=== PATIENT | male | born 1970 | race Caucasian/White ===

== ENCOUNTER 2017-03-25 03:34 | Emergency (ER) | payer MEDICAID ==
[~2017-03-25] VITALS: Ht 167.6 cm; Wt 68.0 kg
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
--- NOTE | 2017-03-25 03:45 | NUR ---
PER DR. KIMBLE, PT PROVIDED WITH FOOD AND JUICE
--- NOTE | 2017-03-25 03:50 | NUR ---
RADIOLOGY AT BEDSIDE FOR CXR
[2017-03-25 04:02] LABS: BASOPHILS % (AUTO) 0.3 % (0.0-2.0); EOSINOPHILS # (AUTO) 0.1 /CMM (0.0-0.7); EOSINOPHILS % (AUTO) 1.2 % (0.0-6.0); HEMATOCRIT 35 % (39-51); HEMOGLOBIN 11.8 g/dL (13.5-17.5); LYMPHOCYTES # (AUTO) 1.5 /CMM (0.8-4.8); LYMPHOCYTES % (AUTO) 23.8 % (20.0-44.0); MEAN CORPUSCULAR HEMOGLOBIN 30 PG (26.0-33.0); MEAN CORPUSCULAR HGB CONC 33 g/dl (31.0-36.0); MEAN CORPUSCULAR VOLUME 89 fL (80-96); MONOCYTES # (AUTO) 0.7 /CMM (0.1-1.30); MONOCYTES % (AUTO) 10.8 % (2.0-12.0); NEUTROPHILS % (AUTO) 63.9 % (43.0-81.0); PLATELET COUNT (AUTO) 204 /CMM (150-450); RDW COEFFICIENT OF VARIATION 13.4 (11.5-15.0); RED BLOOD CELL COUNT(AUTO) 3.98 MIL/uL (4.5-6.0); WHITE BLOOD COUNT (AUTO) 6.3 K/uL (4.3-11.0)
[2017-03-25 04:19] LABS: ALBUMIN 3.6 g/dL (3.4-5.0); BILIRUBIN,DIRECT 0.1 mg/dL (0.0-0.2); BILIRUBIN,TOTAL 0.4 mg/dL (0.2-1.0); CALCIUM, SERUM 8.5 mg/dL (8.5-10.1); CREATININE 1.6 mg/dL (0.6-1.3); TOTAL PROTEIN, SERUM 6.8 g/dL (6.4-8.2)
--- NOTE | 2017-03-25 04:20 | NUR ---
FAMILY AT BEDSIDE
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
[2017-03-25 05:21] LABS: APPEARANCE,URINE CLEAR (CLEAR); BILIRUBIN,URINE NEGATIVE (NEGATIVE); BLOOD, URINE NEGATIVE Ery/uL (NEGATIVE); COLOR,URINE YELLOW (YELLOW); KETONES,URINE NEGATIVE (NEGATIVE); LEUKOCYTE ESTERASE ,URINE NEGATIVE (NEGATIVE); NITRITE, URINE NEGATIVE (NEGATIVE); PH,URINE 6.5 (5.0-8.0); PROTEIN,URINE 1+ mg/dl (NEGATIVE); UGLUCOSE TRACE mg/dL (NEGATIVE); UROBILINOGEN,URINE 0.2 EU/dL (0.2)
[2017-03-25 05:31] LABS: BACTERIA,URINE None seen /HPF (None Seen); RBC,URINE 0-2 /HPF (0-2); SQUAMOUS EPITHELIAL CELL,UR Rare /HPF (None Seen); WBC,URINE NONE SEEN /HPF (0-3)
--- NOTE | 2017-03-25 05:36 | NUR ---
DR. KIMBLE AT BEDSIDE SPEAKING TO PT REGARDING RESULTS.
--- NOTE | 2017-03-25 05:45 | NUR ---
IV removed. Catheter intact and site benign. Pressure and 4x4 applied to site. No bleeding noted. Patient discharged to home in stable condition. Written and verbal after care instructions given. Patient verbalizes understanding of instruction. ambulatory with a steady gait.
[2017-03-25 06:09] VITALS: BP 129/85
== END 2017-03-25 05:45 | disposition home or self-care (01) ==
LOC: ER 03:37
DX: E10.649 Type 1 diabetes mellitus with hypoglycemia without coma (principal); I10 Essential (primary) hypertension; Z79.4 Long term (current) use of insulin
CPT/HCPCS: 36415; 71010; 80048; 80076; 81001; 82962 ×2; 84484; 85025; 93005; 99285; A4606; Z7610; 81000-TC

== ENCOUNTER 2017-06-28 03:24 | Emergency (ER) | payer MEDICAID, OTHER ==
[~2017-06-28] VITALS: Ht 167.6 cm; Wt 65.8 kg
--- NOTE | 2017-06-28 03:24 | NUR ---
PT TO ER BED 5. PT BIBRA FROM HOME C/O ALTERED WITH A BS ON SCENE OF 45, AMP D50 GIVEN ASSOCIATE CHIEF NURSE. PT PLACED ON CANDY SPREADER HELPER. VSS/RESP EVEN UNLABORED/NAD NOTED/SKIN WARM AND DRY/DENIES N-V-D/AOX4. AWAITING MD MENDEZ.
--- NOTE | 2017-06-28 03:35 | NUR ---
ACCUCHECK AT BEDSIDE OF 235. MD AWARE.
--- NOTE | 2017-06-28 04:30 | NUR ---
ACCUCHECK AT BEDSIDE MD Hank AWARE.
--- NOTE | 2017-06-28 04:45 | NUR ---
PT GIVEN A SANDWICH AND WATER. VSS.
--- NOTE | 2017-06-28 04:56 | NUR ---
IV removed. Catheter intact and site benign. Pressure and 4x4 applied to site. No bleeding noted. Patient discharged to home in stable condition. Written and verbal after care instructions given. Patient verbalizes understanding of instruction. Patient ambulatory with a steady gait.
[2017-06-28 04:57] VITALS: BP 138/81
== END 2017-06-28 04:58 | disposition home or self-care (01) ==
LOC: ER 03:26
DX: E10.649 Type 1 diabetes mellitus with hypoglycemia without coma (principal); I10 Essential (primary) hypertension; Z79.4 Long term (current) use of insulin
CPT/HCPCS: 82962 ×2; 99283; A4606; Z7610

== ENCOUNTER 2017-07-29 07:53 | Emergency (ER) | payer OTHER ==
[~2017-07-29] VITALS: Ht 165.1 cm; Wt 67.6 kg
--- NOTE | 2017-07-29 07:55 | NUR ---
AAOX3, BIBRA [address] FOR HYPOGLYCEMIA BS=33MG/DL IN THE FIELD. PATIENT WAS GIVEN 1MG GLUCAGON, REPEAT BS UPON ARRIVAL IS 101MG/DL. ASSISTED PATIENT TO HOSPITAL GOWN. PLACED ON THE MONITOR. DR PUENTES AT BS FOR EVAL.
--- NOTE | 2017-07-29 07:58 | NUR ---
BLOOD SUGAR CHECKED, READING 101. INFORMED.
--- NOTE | 2017-07-29 08:06 | NUR ---
CALLED DIETARY FOR FOOD TRAY.
--- NOTE | 2017-07-29 08:08 | NUR ---
IV ACCESS STARTED. BLOOD DRAWN FOR LABS.
[2017-07-29 08:15] LABS: BASOPHILS % (AUTO) 0.3 % (0.0-2.0); EOSINOPHILS % (AUTO) 0.5 % (0.0-6.0); HEMATOCRIT 39 % (39-51); LYMPHOCYTES # (AUTO) 1.1 /CMM (0.8-4.8); LYMPHOCYTES % (AUTO) 13.7 % (20.0-44.0); MEAN CORPUSCULAR HEMOGLOBIN 30 PG (26.0-33.0); MEAN CORPUSCULAR HGB CONC 34 g/dl (31.0-36.0); MEAN CORPUSCULAR VOLUME 88 fL (80-96); MONOCYTES # (AUTO) 0.6 /CMM (0.1-1.30); MONOCYTES % (AUTO) 7.5 % (2.0-12.0); NEUTROPHILS # (AUTO) 6.4 /CMM (1.8-8.9); PLATELET COUNT (AUTO) 214 /CMM (150-450); RDW COEFFICIENT OF VARIATION 13.2 (11.5-15.0); RED BLOOD CELL COUNT(AUTO) 4.41 MIL/uL (4.5-6.0); WHITE BLOOD COUNT (AUTO) 8.2 K/uL (4.3-11.0)
[2017-07-29 08:30] LABS: CALCIUM, SERUM 9.2 mg/dL (8.5-10.1); CREATININE 1.5 mg/dL (0.6-1.3); POTASSIUM 3.9 mmol/L (3.5-5.1)
[2017-07-29 08:36] LABS: ALBUMIN 3.9 g/dL (3.4-5.0); BILIRUBIN,TOTAL 0.4 mg/dL (0.2-1.0); TOTAL PROTEIN, SERUM 7.8 g/dL (6.4-8.2)
--- NOTE | 2017-07-29 09:45 | NUR ---
IV removed. Catheter intact and site benign. Pressure and 4x4 applied to site. No bleeding noted.
--- NOTE | 2017-07-29 09:50 | NUR ---
Patient discharged to home in stable condition. Written and verbal after care instructions given. Patient verbalizes understanding of instruction.
[2017-07-29 10:25] VITALS: BP 141/89
== END 2017-07-29 10:26 | disposition home or self-care (01) ==
LOC: ER 07:54
DX: E10.649 Type 1 diabetes mellitus with hypoglycemia without coma (principal); I10 Essential (primary) hypertension; Z79.4 Long term (current) use of insulin
CPT/HCPCS: 36415; 80053; 82962 ×2; 85025; 99284; A4606; Z7610

== ENCOUNTER 2017-09-15 05:08 | Emergency (ER) | payer MEDICAID, OTHER ==
[~2017-09-15] VITALS: Ht 167.6 cm; Wt 68.0 kg
[2017-09-15 05:29] LABS: BASOPHILS % (AUTO) 0.3 % (0.0-2.0); EOSINOPHILS % (AUTO) 0.4 % (0.0-6.0); HEMATOCRIT 38 % (39-51); HEMOGLOBIN 12.6 g/dL (13.5-17.5); LYMPHOCYTES % (AUTO) 13.1 % (20.0-44.0); MEAN CORPUSCULAR HGB CONC 33 g/dl (31.0-36.0); MEAN CORPUSCULAR VOLUME 88 fL (80-96); MONOCYTES # (AUTO) 0.5 /CMM (0.1-1.30); MONOCYTES % (AUTO) 6.8 % (2.0-12.0); NEUTROPHILS # (AUTO) 6.2 /CMM (1.8-8.9); NEUTROPHILS % (AUTO) 79.4 % (43.0-81.0); PLATELET COUNT (AUTO) 201 /CMM (150-450); RDW COEFFICIENT OF VARIATION 13.4 (11.5-15.0); RED BLOOD CELL COUNT(AUTO) 4.32 MIL/uL (4.5-6.0); WHITE BLOOD COUNT (AUTO) 7.8 K/uL (4.3-11.0)
[2017-09-15 05:39] LABS: CALCIUM, SERUM 8.7 mg/dL (8.5-10.1); CREATININE 1.6 mg/dL (0.6-1.3); POTASSIUM 3.8 mmol/L (3.5-5.1)
[2017-09-15 05:54] LABS: APPEARANCE,URINE CLEAR (CLEAR); BILIRUBIN,URINE NEGATIVE (NEGATIVE); BLOOD, URINE TRACE-INTA Ery/uL (NEGATIVE); COLOR,URINE YELLOW (YELLOW); KETONES,URINE NEGATIVE (NEGATIVE); LEUKOCYTE ESTERASE ,URINE NEGATIVE (NEGATIVE); NITRITE, URINE NEGATIVE (NEGATIVE); PROTEIN,URINE 2+ mg/dl (NEGATIVE); UGLUCOSE TRACE mg/dL (NEGATIVE); UROBILINOGEN,URINE 0.2 EU/dL (0.2)
[2017-09-15 06:01] LABS: BACTERIA,URINE Few /HPF (None Seen); SQUAMOUS EPITHELIAL CELL,UR Few /HPF (None Seen); WBC,URINE 0-2 /HPF (0-3)
--- NOTE | 2017-09-15 06:36 | NUR ---
ASSUMED D/C CARE OF PT AT THIS TIME ON BEHALF OF PRIMARY NURSE RAFITA. Patient discharged to home in stable condition. Written and verbal after care instructions given. Patient verbalizes understanding of instruction. IV removed. Catheter intact and site benign. Pressure and 4x4 applied to site. No bleeding noted. Ambulatory with a steady gait.
[2017-09-15 06:39] VITALS: BP 140/83
== END 2017-09-15 06:40 | disposition home or self-care (01) ==
LOC: ER 05:11
DX: E10.649 Type 1 diabetes mellitus with hypoglycemia without coma (principal); I10 Essential (primary) hypertension; Z79.4 Long term (current) use of insulin
CPT/HCPCS: 36415; 71045; 80048; 81001; 82962; 85025; 99285; A4606; Z7610; 81000-TC

== ENCOUNTER 2017-11-21 04:41 | Emergency (ER) | payer OTHER ==
[~2017-11-21] VITALS: Ht 167.6 cm; Wt 70.3 kg
--- NOTE | 2017-11-21 04:41 | NUR ---
[id number] FROM HOME C/C HYPOGLYCEMIA, BS 27 IN FIELD, D10 GIVEN BY RA EN ROUTE. PT IS ALERT AND ORIENTED X4 UPON ARRIVAL TO HOSPITAL. VSS NAD. WILL CONTINUE TO MONITOR FOR ANY CHANGES DURING THE SHIFT.
--- NOTE | 2017-11-21 04:42 | NUR ---
ER MD SUTTON AT BEDSIDE
--- NOTE | 2017-11-21 04:50 | NUR ---
BS CHECK 154 BY UNDERGROUND HEAVY EQUIPMENT OPERATOR
--- NOTE | 2017-11-21 05:02 | NUR ---
BLOOD AND URINE PICKED UP BY ASSOCIATE PASTOR
[2017-11-21 05:11] LABS: BASOPHILS % (AUTO) 0.5 % (0.0-2.0); EOSINOPHILS % (AUTO) 0.2 % (0.0-6.0); HEMATOCRIT 34 % (39-51); HEMOGLOBIN 11.5 g/dL (13.5-17.5); LYMPHOCYTES # (AUTO) 0.8 /CMM (0.8-4.8); LYMPHOCYTES % (AUTO) 7.9 % (20.0-44.0); MEAN CORPUSCULAR HGB CONC 33 g/dl (31.0-36.0); MEAN CORPUSCULAR VOLUME 90 fL (80-96); MONOCYTES # (AUTO) 0.9 /CMM (0.1-1.30); MONOCYTES % (AUTO) 8.2 % (2.0-12.0); NEUTROPHILS # (AUTO) 8.8 /CMM (1.8-8.9); NEUTROPHILS % (AUTO) 83.2 % (43.0-81.0); PLATELET COUNT (AUTO) 194 /CMM (150-450); RDW COEFFICIENT OF VARIATION 13.6 (11.5-15.0); RED BLOOD CELL COUNT(AUTO) 3.81 MIL/uL (4.5-6.0); WHITE BLOOD COUNT (AUTO) 10.5 K/uL (4.3-11.0)
--- NOTE | 2017-11-21 05:14 | NUR ---
CHEST XRAY AT BEDSIDE
[2017-11-21 05:17] LABS: APPEARANCE,URINE CLEAR (CLEAR); BILIRUBIN,URINE NEGATIVE (NEGATIVE); BLOOD, URINE TRACE-INTA Ery/uL (NEGATIVE); COLOR,URINE YELLOW (YELLOW); KETONES,URINE NEGATIVE (NEGATIVE); LEUKOCYTE ESTERASE ,URINE NEGATIVE (NEGATIVE); NITRITE, URINE NEGATIVE (NEGATIVE); PROTEIN,URINE 2+ mg/dl (NEGATIVE); UGLUCOSE NEGATIVE (NEGATIVE)
[2017-11-21 05:27] LABS: BACTERIA,URINE None seen /HPF (None Seen); RBC,URINE 0-2 /HPF (0-2); SQUAMOUS EPITHELIAL CELL,UR Few /HPF (None Seen); WBC,URINE 0-2 /HPF (0-3)
[2017-11-21] MEDS ORDERED: IV NS 0.9% 500 ML BAG IV ONE (05:30)
[2017-11-21 05:48] LABS: ALBUMIN 3.5 g/dL (3.4-5.0); BILIRUBIN,DIRECT 0.1 mg/dL (0.0-0.2); BILIRUBIN,TOTAL 0.3 mg/dL (0.2-1.0); CALCIUM, SERUM 8.6 mg/dL (8.5-10.1); CREATININE 1.8 mg/dL (0.6-1.3); TOTAL PROTEIN, SERUM 6.8 g/dL (6.4-8.2)
[2017-11-21 05:59] LABS: POTASSIUM 3.7 mmol/L (3.5-5.1)
[2017-11-21 06:16] LABS: INR 0.99 (0.87-1.13)
[2017-11-21 06:57] VITALS: BP 160/97
== END 2017-11-21 06:58 | disposition home or self-care (01) ==
LOC: ER 04:42
DX: E10.649 Type 1 diabetes mellitus with hypoglycemia without coma (principal); I10 Essential (primary) hypertension; R79.1 Abnormal coagulation profile; Z87.39 Personal history of other diseases of the musculoskeletal system and connective tissue; Z60.2 Problems related to living alone
CPT/HCPCS: 36415; 71045-TC; 80048-TC; 80076-TC; 80305; 81000-TC; 82962-TC; 83605-TC; 85025-TC; 85730-TC; A4606; J7040; Z7610

== ENCOUNTER 2017-12-05 16:29 | Emergency (ER) | payer OTHER ==
[~2017-12-05] VITALS: Ht 167.6 cm; Wt 66.7 kg
[2017-12-05] MEDS ORDERED: IV NS 0.9% 1,000 ML BAG IV ONE (17:00)
[2017-12-05] MEDS ORDERED: ONDANSETRON HCL/PF 4 MG/2 ML VIAL IVP ONE (17:00)
--- NOTE | 2017-12-05 17:00 | NUR ---
PT CAME IN WITH DIZZYNESS, N/V/D, ABD PAIN SINCE THIS AM. SEEN BY MD FOR EVKAYLA. SAFETY AND COMFORT MEASURES PROVIDED. WILL MONITOR.
[2017-12-05] MEDS ORDERED: ONDANSETRON HCL/PF 4 MG/2 ML VIAL ONE (17:03)
--- NOTE | 2017-12-05 17:10 | NUR ---
IV ACCESS STARTED. BLOOD DRAWN FOR LABS. MEDICATED ORDERED.
[2017-12-05 17:15] LABS: BASOPHILS % (AUTO) 0.2 % (0.0-2.0); EOSINOPHILS % (AUTO) 0.1 % (0.0-6.0); HEMATOCRIT 39 % (39-51); HEMOGLOBIN 13.1 g/dL (13.5-17.5); LYMPHOCYTES # (AUTO) 0.2 /CMM (0.8-4.8); LYMPHOCYTES % (AUTO) 2.1 % (20.0-44.0); MEAN CORPUSCULAR HEMOGLOBIN 30 PG (26.0-33.0); MEAN CORPUSCULAR HGB CONC 34 g/dl (31.0-36.0); MEAN CORPUSCULAR VOLUME 88 fL (80-96); MONOCYTES # (AUTO) 0.7 /CMM (0.1-1.30); MONOCYTES % (AUTO) 8.1 % (2.0-12.0); NEUTROPHILS # (AUTO) 7.7 /CMM (1.8-8.9); NEUTROPHILS % (AUTO) 89.5 % (43.0-81.0); PLATELET COUNT (AUTO) 227 /CMM (150-450); RDW COEFFICIENT OF VARIATION 12.9 (11.5-15.0); RED BLOOD CELL COUNT(AUTO) 4.39 MIL/uL (4.5-6.0); WHITE BLOOD COUNT (AUTO) 8.6 K/uL (4.3-11.0)
[2017-12-05 17:23] LABS: CALCIUM, SERUM 8.8 mg/dL (8.5-10.1); CREATININE 1.8 mg/dL (0.6-1.3); POTASSIUM 4.7 mmol/L (3.5-5.1)
[2017-12-05 17:29] LABS: ALBUMIN 3.5 g/dL (3.4-5.0); BILIRUBIN,DIRECT 0.2 mg/dL (0.0-0.2); BILIRUBIN,TOTAL 1.1 mg/dL (0.2-1.0); TOTAL PROTEIN, SERUM 6.9 g/dL (6.4-8.2)
--- NOTE | 2017-12-05 18:30 | NUR ---
IV removed. Catheter intact and site benign. Pressure and 4x4 applied to site. No bleeding noted.
--- NOTE | 2017-12-05 18:31 | NUR ---
Patient discharged to home in stable condition. Written and verbal after care instructions given. Patient verbalizes understanding of instruction.
[2017-12-05 18:32] VITALS: BP 131/74
== END 2017-12-05 18:33 | disposition home or self-care (01) ==
LOC: ER 16:36
DX: R11.2 Nausea with vomiting, unspecified (principal); I10 Essential (primary) hypertension; E10.9 Type 1 diabetes mellitus without complications; Z60.2 Problems related to living alone
CPT/HCPCS: 36415; 80048; 80076; 83690; 85025; 96361; 96374; 99284; A4606; J2405; J7030; Z7610

== ENCOUNTER 2018-04-04 01:07 | Emergency (ER) | payer MEDICAID, OTHER ==
[~2018-04-04] VITALS: Ht 167.6 cm; Wt 65.3 kg
--- NOTE | 2018-04-04 01:25 | NUR ---
TO ER BED 10 C/O DIZZYNESS X 2 DAYS. PT AA/OX4. "I PASSED OUT AT WORK YESTERDAY AND HAVE BEEN DIZZY EVER SINCE." NO TRAUMA NOTED. NO S/S SOB. SKIN PINK, WARM, DRY. MOVES ALL EXTREMITIES WELL. AMBULATED TO HOSPITAL BED WITH STABLE GAIT. NAD.VSS. STABLE CONDITION. WILL CONTINUE TO MONITOR.
--- NOTE | 2018-04-04 01:30 | NUR ---
ACCUCHECK = 187, DR. ANAYA MADE AWARE
[2018-04-04] MEDS ORDERED: ONDANSETRON HCL/PF 4 MG/2 ML VIAL ONE (01:58)
[2018-04-04] MEDS ORDERED: ONDANSETRON HCL/PF 4 MG/2 ML VIAL IVP ONE (02:00)
[2018-04-04] MEDS ORDERED: IV NS 0.9% 1,000 ML BAG IV ONE (02:00)
[2018-04-04 02:18] LABS: BASOPHILS % (AUTO) 0.2 % (0.0-2.0); EOSINOPHILS % (AUTO) 0.3 % (0.0-6.0); HEMATOCRIT 36 % (39-51); LYMPHOCYTES # (AUTO) 1.4 /CMM (0.8-4.8); MEAN CORPUSCULAR HGB CONC 34 g/dl (31.0-36.0); MEAN CORPUSCULAR VOLUME 90 fL (80-96); MONOCYTES # (AUTO) 1.1 /CMM (0.1-1.30); MONOCYTES % (AUTO) 10.5 % (2.0-12.0); NEUTROPHILS # (AUTO) 8.3 /CMM (1.8-8.9); PLATELET COUNT (AUTO) 202 /CMM (150-450); RED BLOOD CELL COUNT(AUTO) 3.99 MIL/uL (4.5-6.0); WHITE BLOOD COUNT (AUTO) 10.9 K/uL (4.3-11.0)
[2018-04-04 02:26] LABS: CARBON DIOXIDE 27 mmol/L (21-32); CHLORIDE 102 mmol/L (98-107); CREATININE 2.1 mg/dL (0.6-1.3); GLUCOSE 188 mg/dL (74-106); SODIUM SERUM 138 mmol/L (136-145); UREA NITROGEN, BLOOD 29 mg/dL (7-18)
[2018-04-04 02:28] LABS: INR 1.02 (0.87-1.13)
[2018-04-04 02:32] LABS: ALANINE AMINOTRANSFERASE 20 U/L (12-78); ALBUMIN 3.7 g/dL (3.4-5.0); ALKALINE PHOSPHATASE 78 U/L (46-116); ASPARTATE AMINOTRANSFERASE 28 U/L (15-37); BILIRUBIN,DIRECT 0.1 mg/dL (0.0-0.2); BILIRUBIN,TOTAL 0.6 mg/dL (0.2-1.0); TOTAL PROTEIN, SERUM 7.3 g/dL (6.4-8.2)
[2018-04-04 02:34] LABS: TROPONIN I < 0.017 ng/mL (0.00-0.056)
--- NOTE | 2018-04-04 02:40 | NUR ---
Patient is resting comfortably in bed with eyes closed. Easily aroused. VSS
--- NOTE | 2018-04-04 03:32 | NUR ---
Patient discharged to home in stable condition. Written and verbal after care instructions given. Patient verbalizes understanding of instruction. IV removed. Catheter intact and site benign. Pressure and 4x4 applied to site. No bleeding noted. AMBULATED WITH STEADY GAIT.
[2018-04-04 03:34] VITALS: BP 118/76
== END 2018-04-04 03:34 | disposition home or self-care (01) ==
LOC: ER 01:08
DX: R55 Syncope and collapse (principal); E10.9 Type 1 diabetes mellitus without complications; Z60.2 Problems related to living alone
CPT/HCPCS: 36415; 70450; 71045; 80048; 80076; 82962; 84484; 85025; 85730; 93005; 96361; 96374; 99285; J2405; J7030; A4606; Z7610

== ENCOUNTER 2018-07-07 23:18 | Emergency (ER) | payer MEDICAID, OTHER ==
[~2018-07-07] VITALS: Ht 167.6 cm; Wt 63.5 kg
--- NOTE | 2018-07-08 00:20 | NUR ---
Pt walked in for throat pain x 3 days, noted to have dry non-productive cough, afebrile at this time. Denies chest pain. He is A, O/4, moves his extremities without difficulty, lungs clear on auscultation.
[2018-07-08 00:22] VITALS: BP 171/104
--- NOTE | 2018-07-08 00:35 | NUR ---
Troat was swabbed for Rapid Strep test. Submitted to lab.
--- NOTE | 2018-07-08 01:31 | NUR ---
Received report from lab, pt turned negative for Strep. Dr. Davidson notified.
--- NOTE | 2018-07-08 01:55 | NUR ---
Patient discharged to home in stable condition. Written and verbal after care instructions given. Patient verbalizes understanding of instruction. Pt ambulatory with a steady gait.
== END 2018-07-08 01:56 | disposition home or self-care (01) ==
LOC: ER 23:25
DX: J02.9 Acute pharyngitis, unspecified (principal); I10 Essential (primary) hypertension; E10.9 Type 1 diabetes mellitus without complications; Z60.2 Problems related to living alone
CPT/HCPCS: 86403-TC; 87070-TC

== ENCOUNTER 2019-04-04 21:23 | Emergency (ER) | payer MEDICAID, OTHER ==
[~2019-04-04] VITALS: Ht 167.6 cm; Wt 64.9 kg
[2019-04-04 22:06] VITALS: BP 158/88
[2019-04-04] MEDS ORDERED: ACETAMINOPHEN 325 MG TABLET PO ONE (22:30)
[2019-04-04] MEDS ORDERED: ACETAMINOPHEN 325 MG TABLET ONE (22:31)
== END 2019-04-04 23:37 | disposition home or self-care (01) ==
LOC: ER 21:27
DX: S63.691A Other sprain of left index finger, initial encounter (principal); I10 Essential (primary) hypertension; E10.9 Type 1 diabetes mellitus without complications; Z60.2 Problems related to living alone; V49.69XA Unspecified car occupant injured in collision with other motor vehicles in traffic accident, initial encounter; Y93.89 Activity, other specified; Y92.89 Other specified places as the place of occurrence of the external cause; Y99.8 Other external cause status
CPT/HCPCS: 73140-TC